=== PATIENT | male | born 1990 | race African-American/Black ===

== ENCOUNTER 2022-10-11 08:52 | Emergency (ER) | payer MEDICAID, OTHER ==
[~2022-10-11] VITALS: Ht 172.7 cm; Wt 67.3 kg
[~2022-10-11 08:52] MED LIST: PHEN100C4 PO
[2022-10-11 09:02] VITALS: BP 105/65
[2022-10-11] MEDS ORDERED: ERYT1OIN6 EACHEYE (10:06)
[2022-10-11] MEDS ORDERED: BENZ200C52 MT (10:06)
== END 2022-10-11 10:29 | disposition home or self-care (01) ==
LOC: ER 08:52
DX: R05.9 Cough, unspecified (principal); H10.9 Unspecified conjunctivitis; Z86.59 Personal history of other mental and behavioral disorders
CPT/HCPCS: 71045; 99283

== ENCOUNTER 2023-01-20 01:07 | Emergency (ER) | payer OTHER ==
[~2023-01-20] VITALS: Ht 175.3 cm; Wt 82.0 kg
[~2023-01-20 01:07] MED LIST changes: +BENZ200C52 MT; +ERYT1OIN6 EACHEYE
[2023-01-20 01:15] VITALS: O2SAT 96
[2023-01-20] MEDS ORDERED: LORAZEPAM 2MG/ML CPJ IV ONE (02:30)
[2023-01-20 02:47] LABS: BASOPHILS % 0.7 % (0.0-2.0); EOSINOPHILS % 1.4 % (0.0-5.0); HEMATOCRIT. 42.5 % (42.0-52.0); LYMPHOCYTES % 28.9 % (20.0-50.0); MEAN CORPUSCULAR HEMOGLOBIN 32.2 pg (28.0-32.0); MEAN CORPUSCULAR VOLUME 91.6 fL (80.0-94.0); MONOCYTES % 6.5 % (2.0-8.0); NEUTROPHILS % 62.5 % (40.0-76.0); RED BLOOD CELL COUNT 4.64 mill/uL (4.7-6.1); RED CELL DISTRIBUTION WIDTH 12.9 % (11.6-14.6)
[2023-01-20 02:53] LABS: CHLORIDE 107 mEq/L (98-107)
[2023-01-20 03:03] LABS: ETHANOL BLOOD < 10 mg/dL (-10)
[2023-01-20 03:30] VITALS: TEMP 98.8
[2023-01-20 04:30] LABS: MEAN PLATELET VOLUME 8.7 fl (7.4-10.4); PLATELET 163 x1000/uL (130-400)
[2023-01-20] MEDS ORDERED: PHENYTOIN SODIUM 500 MG in SODIUM CHLORIDE 0.9% 50 ML IV ONE (05:15)
[2023-01-20] MEDS ORDERED: PHENYTOIN SODIUM 500 MG in SODIUM CHLORIDE 0.9% 50 ML IV NR (05:15)
[2023-01-20] MEDS ORDERED: KEPP500 MT (05:57)
[2023-01-20] MEDS ORDERED: PHEN100C4 PO (05:57)
[2023-01-20 06:39] VITALS: BP 102/59; PULSE 76; RESP 16
== END 2023-01-20 06:39 | disposition home or self-care (01) ==
LOC: ER 01:29
DX: G40.909 Epilepsy, unspecified, not intractable, without status epilepticus (principal)
CPT/HCPCS: 80053; 80320; 80185; 85025; 36415; 96365; 96375; 99285; J2060; J1165; Z7610 ×4; G0480

== ENCOUNTER 2023-09-24 01:01 | Emergency (ER) | payer MEDICAID ==
[~2023-09-24] VITALS: Ht 177.8 cm; Wt 74.0 kg
[~2023-09-24 01:01] MED LIST changes: +KEPP500 MT
[2023-09-24 01:04] VITALS: O2SAT 100
[2023-09-24 01:20] VITALS: BP 116/69; PULSE 77; RESP 16; TEMP 98.4
[2023-09-24] MEDS: SODIUM CHLORIDE 0.9% 1,000 ML IV ONE (01:59)
[2023-09-24] MEDS: LEVETIRACETAM 1000MG PREMIX 100 ML IV ONE (01:59)
[2023-09-25] MEDS ORDERED: KEPP500 MT (07:11)
== END 2023-09-24 03:34 | disposition home or self-care (01) ==
LOC: ER 01:01
DX: R56.9 Unspecified convulsions (principal); F12.90 Cannabis use, unspecified, uncomplicated; Z91.148 Patient's other noncompliance with medication regimen for other reason; Z98.890 Other specified postprocedural states
CPT/HCPCS: 96365; 99284; J1953; J7030; Z7610 ×2

== ENCOUNTER 2023-09-24 10:06 | Emergency (ER) | payer MEDICAID ==
[~2023-09-24] VITALS: Ht 175.3 cm; Wt 77.0 kg
[2023-09-24 10:08] VITALS: O2SAT 95
[2023-09-24 10:37] LABS: BASOPHILS % 0.6 % (0.0-2.0); HEMATOCRIT. 46.6 % (42.0-52.0); HEMOGLOBIN. 15.8 g/dL (14.0-18.0); LYMPHOCYTES % 20.6 % (20.0-50.0); MEAN CORPUSCULAR HGB CONC 33.9 g/dL (31.0-37.0); MEAN CORPUSCULAR VOLUME 91.3 fL (80.0-94.0); MONOCYTES % 7.6 % (2.0-8.0); NEUTROPHILS % 70.2 % (40.0-76.0); PLATELET 196 x1000/uL (130-400); RED CELL DISTRIBUTION WIDTH 13.6 % (11.6-14.6); WHITE BLOOD COUNT 9.3 x1000/uL (4.5-11.0)
[2023-09-24 10:47] LABS: PROTHROMBIN TIME 11.4 sec (9.6-11.0)
[2023-09-24 10:57] LABS: ALANINE AMINOTRANSFERASE 26 IU/L (10-49); ALBUMIN 4.5 g/dL (3.2-4.8); ASPARTATE AMINOTRANSFERASE 27 IU/L (<34); BILIRUBIN TOTAL 0.4 mg/dL (0.1-1.0); CALCIUM 8.9 mg/dL (8.7-10.4); CARBON DIOXIDE 23 mEq/L (21-32); CHLORIDE 109 mEq/L (98-107); GLUCOSE 85 mg/dL (70-105); POTASSIUM 4.2 mEq/L (3.5-5.1); PROTEIN TOTAL 7.1 g/dL (6.0-8.3); SODIUM 141 mEq/L (136-145); TROPONIN I HIGH SENSITIVITY 4 ng/L (3.0-53); UREA NITROGEN BLOOD 9 mg/dL (9-23)
[2023-09-24 11:14] LABS: ETHANOL BLOOD < 10 mg/dL (<10)
[2023-09-24 12:25] VITALS: BP 118/70; PULSE 80; RESP 15; TEMP 98.7
[2023-09-24] MEDS: LEVETIRACETAM 500MG PREMIX 100 ML IV ONE ×2 (12:51→14:56)
[2023-09-25] MEDS ORDERED: KEPP500 MT (07:11)
== END 2023-09-24 17:22 | disposition left against medical advice (07) ==
LOC: ER 10:06 → EDBEDREQ 13:46 → ER 17:22 → CANBEDREQ 17:29
DX: R56.9 Unspecified convulsions (principal); F19.90 Other psychoactive substance use, unspecified, uncomplicated; Z98.890 Other specified postprocedural states
CPT/HCPCS: 80053; 80320; 83690; 85025; 85610; 84484; 36415; 71045; 70450; 93005; 96365; 96366; 99285; J1953; Z7610 ×4; G0480

== ENCOUNTER 2023-09-25 06:44 | Emergency (ER) | payer MEDICAID ==
[~2023-09-25] VITALS: Ht 182.9 cm; Wt 91.0 kg
[2023-09-25 06:45] VITALS: O2SAT 99
[2023-09-25 07:10] VITALS: BP 125/71; PULSE 82; RESP 13; TEMP 97.9
[2023-09-25] MEDS ORDERED: KEPP500 MT (07:11)
[2023-09-25] MEDS: LEVETIRACETAM 500MG TABLET PO ONE (07:18)
== END 2023-09-25 07:22 | disposition home or self-care (01) ==
LOC: ER 06:44
DX: R56.9 Unspecified convulsions (principal); Z91.148 Patient's other noncompliance with medication regimen for other reason; Z98.890 Other specified postprocedural states
CPT/HCPCS: 99283

== ENCOUNTER 2023-09-25 08:46 | Inpatient (IN) | payer MEDICAID ==
[~2023-09-25] VITALS: Ht 172.7 cm; Wt 77.1 kg
[2023-09-25 08:47] VITALS: O2SAT 98
[2023-09-25] MEDS: SODIUM CHLORIDE 0.45% 1,000 ML IV ONE (11:10)
[2023-09-25] MEDS: ACETAMINOPHEN 325MG TABLET PO NR (11:11)
[2023-09-25] MEDS: LEVETIRACETAM 1000MG PREMIX 100 ML IV ONE (13:21)
[2023-09-25 17:10] VITALS: BP 112/63; PULSE 62; RESP 14; RESP 16; TEMP 99.9
[2023-09-25 17:50] VITALS: BP 112/63; PULSE 72; RESP 18; TEMP 99.9
[2023-09-25] MEDS ORDERED: DIVALPROEX SODIUM 125MG SPRINKLE CAPSULE PO SCH (19:00)
[2023-09-25] MEDS ORDERED: LORAZEPAM 4MG/ML INJ IV PRN (19:00)
[2023-09-25] MEDS: LORAZEPAM 2MG/ML INJ ONE (19:44)
[2023-09-25] MEDS: LORAZEPAM 2MG/ML INJ IV PRN (19:50)
[2023-09-25 20:00] VITALS: BP 126/76; PULSE 68; RESP 18; TEMP 99.1
[2023-09-25] MEDS: DIVALPROEX SODIUM 500MG ER TABLET PO SCH (20:07)
[2023-09-25] MEDS: LEVETIRACETAM 500MG TABLET PO SCH (20:07)
[2023-09-26] VITALS: BP 115/69; PULSE 70; RESP 17; TEMP 98.7
[2023-09-26 04:00] VITALS: BP 130/76; PULSE 67; RESP 17; TEMP 98.5
[2023-09-26 07:25] LABS: CALCIUM 9.1 mg/dL (8.7-10.4); CARBON DIOXIDE 26 mEq/L (21-32); CHLORIDE 106 mEq/L (98-107); CREATININE 0.9 mg/dL (0.6-1.3); GLUCOSE 86 mg/dL (70-105); POTASSIUM 3.8 mEq/L (3.5-5.1); SODIUM 138 mEq/L (136-145); UREA NITROGEN BLOOD 7 mg/dL (9-23)
[2023-09-26 07:31] LABS: HEMATOCRIT 43.9 % (42.0-52.0); HEMOGLOBIN 15.3 g/dL (14.0-18.0); MEAN CORPUSCULAR HEMOGLOBIN 31.4 pg (28.0-32.0); MEAN CORPUSCULAR HGB CONC 34.9 g/dL (31.0-37.0); MEAN CORPUSCULAR VOLUME 90.1 fL (80.0-94.0); PLATELET 171 x1000/uL (130-400); RED BLOOD CELL COUNT 4.87 mill/uL (4.7-6.1); RED CELL DISTRIBUTION WIDTH 13.3 % (11.6-14.6); WHITE BLOOD COUNT 8.4 x1000/uL (4.5-11.0)
[2023-09-26 08:00] VITALS: BP 116/60; PULSE 71; RESP 17; TEMP 97.8
[2023-09-26] MEDS: HYDROCODONE/ACETAMINOPHEN 5/325MG TABLET PO PRN (08:37)
[2023-09-26 12:00] VITALS: BP 112/72; PULSE 63; RESP 17; TEMP 98.1
[2023-09-26 16:00] VITALS: BP 108/61; PULSE 60; RESP 20; TEMP 97.6
[2023-09-26] MEDS ORDERED: NALOXONE HCL 0.4MG/ML VIAL IV PRN (19:30)
[2023-09-26 20:00] VITALS: BP 114/73; PULSE 88; RESP 18; TEMP 97.5
[2023-09-27 04:00] VITALS: BP 149/69; PULSE 78; RESP 18; TEMP 97.5
[2023-09-27 08:00] VITALS: BP 128/73; PULSE 62; RESP 18; TEMP 98.1
== END 2023-09-27 13:30 | disposition home or self-care (01) | DRG 53 ==
LOC: ER 08:46 → EDBEDREQTM 15:23 → EDBEDREQ 15:23 → 7WST 17:15
PROVIDERS: ADMIT Internal Medicine; ATTEND Internal Medicine
DX: G40.901 Epilepsy, unspecified, not intractable, with status epilepticus (principal); E86.0 Dehydration; S00.83XA Contusion of other part of head, initial encounter; X58.XXXA Exposure to other specified factors, initial encounter
CPT/HCPCS: 36415; 80048; 82542; 85027; 99285; C1893; J1953; J2060

== ENCOUNTER 2023-12-05 07:42 | Emergency (ER) | payer MEDICAID ==
[~2023-12-05] VITALS: Ht 177.8 cm; Wt 80.0 kg
[2023-12-05 07:44] VITALS: O2SAT 98
[2023-12-05 08:06] VITALS: BP 115/75; PULSE 76; RESP 14; TEMP 98.2
[2023-12-05] MEDS ORDERED: ACET-2708 MT (08:23)
[2023-12-07] MEDS ORDERED: DIVA125T2 MT (18:04)
== END 2023-12-05 08:41 | disposition home or self-care (01) ==
LOC: ER 07:42
DX: R56.9 Unspecified convulsions (principal); Z79.899 Other long term (current) drug therapy
CPT/HCPCS: 99283; Z7610 ×2

== ENCOUNTER 2024-02-18 07:13 | Emergency (ER) | payer MEDICAID ==
[~2024-02-18] VITALS: Ht 165.1 cm; Wt 75.0 kg
[~2024-02-18 07:13] MED LIST changes: +ACET-2708 MT; +DIVA125T2 MT
[2024-02-18 07:15] VITALS: BP 109/63; PULSE 76; RESP 17; TEMP 97.8; O2SAT 98
[2024-02-19] MEDS ORDERED: KEPP500 PO (09:26)
[2024-02-19] MEDS ORDERED: PHEN100C4 PO (09:26)
== END 2024-02-18 08:22 | disposition home or self-care (01) ==
LOC: ER 07:13
DX: G40.901 Epilepsy, unspecified, not intractable, with status epilepticus (principal); Z79.899 Other long term (current) drug therapy
CPT/HCPCS: 99283

== ENCOUNTER 2024-02-19 07:15 | Emergency (ER) | payer MEDICAID ==
[~2024-02-19] VITALS: Ht 182.9 cm; Wt 82.0 kg
[2024-02-19 07:16] VITALS: O2SAT 99
[2024-02-19 08:17] LABS: CHLORIDE 108 mEq/L (98-107); POTASSIUM 4.4 mEq/L (3.5-5.1); SODIUM 141 mEq/L (136-145)
[2024-02-19 08:18] LABS: CARBON DIOXIDE 26 mEq/L (21-32)
[2024-02-19 08:19] LABS: CALCIUM 8.9 mg/dL (8.7-10.4)
[2024-02-19 08:23] LABS: CREATININE 0.9 mg/dL (0.6-1.3); GLUCOSE 95 mg/dL (70-105); UREA NITROGEN BLOOD 8 mg/dL (9-23)
[2024-02-19 08:28] LABS: ETHANOL BLOOD < 10 mg/dL (<10)
[2024-02-19 08:36] LABS: EOSINOPHILS % 2.4 % (0.0-5.0); HEMATOCRIT. 45.1 % (42.0-52.0); LYMPHOCYTES % 22.8 % (20.0-50.0); MEAN CORPUSCULAR HEMOGLOBIN 31.9 pg (28.0-32.0); MEAN CORPUSCULAR HGB CONC 33.3 g/dL (31.0-37.0); MEAN CORPUSCULAR VOLUME 95.8 fL (80.0-94.0); MEAN PLATELET VOLUME 9.2 fl (7.4-10.4); MONOCYTES % 5.7 % (2.0-8.0); NEUTROPHILS % 68.1 % (40.0-76.0); PLATELET 123 x1000/uL (130-400); RED BLOOD CELL COUNT 4.71 mill/uL (4.7-6.1); RED CELL DISTRIBUTION WIDTH 13.5 % (11.6-14.6); WHITE BLOOD COUNT 7.6 x1000/uL (4.5-11.0)
[2024-02-19] MEDS: ACETAMINOPHEN 325MG TABLET PO NR (08:53)
[2024-02-19] MEDS: LEVETIRACETAM 1000MG PREMIX 100 ML IV NR (08:53)
[2024-02-19] MEDS ORDERED: KEPP500 PO (09:26)
[2024-02-19] MEDS ORDERED: PHEN100C4 PO (09:26)
[2024-02-19 09:38] VITALS: BP 115/55; PULSE 88; RESP 15; TEMP 36.83628; O2SAT 97
== END 2024-02-19 09:40 | disposition home or self-care (01) ==
LOC: ER 07:15
DX: R56.9 Unspecified convulsions (principal); Z79.899 Other long term (current) drug therapy; Z91.148 Patient's other noncompliance with medication regimen for other reason
CPT/HCPCS: 80048; 80320; 80185; 85025; 36415; 96365; 99284; 82542; J1953; G0480

== ENCOUNTER 2024-03-04 11:18 | Emergency (ER) | payer MEDICAID ==
[~2024-03-04] VITALS: Ht 172.7 cm; Wt 77.0 kg
[~2024-03-04 11:18] MED LIST changes: +KEPP500 PO
[2024-03-04 11:27] VITALS: O2SAT 97
[2024-03-04] MEDS ORDERED: TOPUD MT (16:29)
[2024-03-04] MEDS ORDERED: IBUP-1523 MT (16:29)
[2024-03-04 16:50] VITALS: BP 144/83; PULSE 85; RESP 16; TEMP 36.78072; O2SAT 97
== END 2024-03-04 16:50 | disposition home or self-care (01) ==
LOC: ER 11:18
DX: S01.112A Laceration without foreign body of left eyelid and periocular area, initial encounter (principal); Z79.899 Other long term (current) drug therapy; X58.XXXA Exposure to other specified factors, initial encounter; Y93.89 Activity, other specified; Y92.89 Other specified places as the place of occurrence of the external cause; Y99.8 Other external cause status
CPT/HCPCS: 12013; 99282; Z7610

== ENCOUNTER 2024-03-05 08:43 | Emergency (ER) | payer MEDICAID ==
[~2024-03-05] VITALS: Ht 177.8 cm; Wt 82.0 kg
[~2024-03-05 08:43] MED LIST changes: +IBUP-1523 MT; +TOPUD MT
[2024-03-05 08:50] VITALS: BP 121/85; PULSE 90; RESP 16; TEMP 98.2; O2SAT 97
[2024-03-05] MEDS ORDERED: LEVETIRACETAM 1000MG PREMIX 100 ML IV NR (09:00)
== END 2024-03-05 11:02 | disposition left against medical advice (07) ==
LOC: ER 08:43 → EDBEDREQ 10:33 → ER 11:02
DX: G40.909 Epilepsy, unspecified, not intractable, without status epilepticus (principal); Z79.899 Other long term (current) drug therapy
CPT/HCPCS: 99283

== ENCOUNTER 2024-03-17 07:16 | Emergency (ER) | payer MEDICAID ==
[~2024-03-17] VITALS: Ht 172.7 cm; Wt 81.0 kg
[2024-03-17 07:20] VITALS: BP 126/71; PULSE 94; RESP 14; TEMP 97.9; O2SAT 100
[2024-03-17] MEDS ORDERED: LEVETIRACETAM 500MG/5ML CUP PO ONE (07:45)
== END 2024-03-17 07:59 | disposition left against medical advice (07) ==
LOC: ER 07:16
DX: G40.909 Epilepsy, unspecified, not intractable, without status epilepticus (principal); Z79.899 Other long term (current) drug therapy
CPT/HCPCS: 99283

== ENCOUNTER 2024-03-18 13:39 | Emergency (ER) | payer MEDICAID ==
[~2024-03-18] VITALS: Ht 177.8 cm; Wt 86.0 kg
[2024-03-18 13:47] VITALS: BP 113/73; PULSE 87; RESP 18; TEMP 98.8; O2SAT 98
== END 2024-03-18 14:17 | disposition left against medical advice (07) ==
LOC: ER 13:57
DX: R56.9 Unspecified convulsions (principal); Z79.899 Other long term (current) drug therapy
CPT/HCPCS: 99283; Z7610

== ENCOUNTER 2024-03-20 14:17 | Emergency (ER) | payer MEDICAID ==
[~2024-03-20] VITALS: Ht 172.7 cm; Wt 77.0 kg
[2024-03-20 14:25] VITALS: O2SAT 100
[2024-03-20 14:29] VITALS: BP 119/66; PULSE 61; RESP 16; TEMP 36.78072; O2SAT 100
== END 2024-03-20 16:15 ==
LOC: ER 14:17
DX: S01.112D Laceration without foreign body of left eyelid and periocular area, subsequent encounter (principal); Z48.02 Encounter for removal of sutures; Z79.899 Other long term (current) drug therapy; Z48.00 Encounter for change or removal of nonsurgical wound dressing; Z86.59 Personal history of other mental and behavioral disorders; X58.XXXD Exposure to other specified factors, subsequent encounter
CPT/HCPCS: 99281

== ENCOUNTER 2024-03-23 11:10 | Emergency (ER) | payer MEDICAID ==
[~2024-03-23] VITALS: Ht 172.7 cm; Wt 71.0 kg
[2024-03-23 11:54] VITALS: BP 115/88; PULSE 93; RESP 16; TEMP 98.4; O2SAT 99
[2024-03-23] MEDS ORDERED: KEPP500 MT (12:02)
== END 2024-03-23 12:20 | disposition home or self-care (01) ==
LOC: ER 12:19
DX: G40.909 Epilepsy, unspecified, not intractable, without status epilepticus (principal); Z79.899 Other long term (current) drug therapy
CPT/HCPCS: 99283

== ENCOUNTER 2024-05-05 17:27 | Emergency (ER) | payer MEDICAID ==
[~2024-05-05] VITALS: Ht 172.7 cm; Wt 65.0 kg
[2024-05-05 17:40] VITALS: O2SAT 99
[2024-05-05 17:46] VITALS: BP 132/80; PULSE 86; RESP 18; TEMP 98.8; O2SAT 99
[2024-05-05 19:55] LABS: HEMATOCRIT 44.4 % (42.0-52.0); HEMOGLOBIN 14.6 g/dL (14.0-18.0); MEAN CORPUSCULAR HEMOGLOBIN 31.5 pg (28.0-32.0); MEAN CORPUSCULAR HGB CONC 32.9 g/dL (31.0-37.0); MEAN CORPUSCULAR VOLUME 95.8 fL (80.0-94.0); PLATELET 183 x1000/uL (130-400); RED BLOOD CELL COUNT 4.63 mill/uL (4.7-6.1); RED CELL DISTRIBUTION WIDTH 13.3 % (11.6-14.6); WHITE BLOOD COUNT 8.3 x1000/uL (4.5-11.0)
[2024-05-05 20:01] LABS: CHLORIDE 106 mEq/L (98-107); POTASSIUM 3.8 mEq/L (3.5-5.1); SODIUM 141 mEq/L (136-145)
[2024-05-05 20:02] LABS: CARBON DIOXIDE 26 mEq/L (21-32)
[2024-05-05 20:03] LABS: CALCIUM 9.7 mg/dL (8.7-10.4)
[2024-05-05 20:07] LABS: GLUCOSE 87 mg/dL (70-105); UREA NITROGEN BLOOD 15 mg/dL (9-23)
== END 2024-05-05 23:20 | disposition home or self-care (01) ==
LOC: ER 17:27
DX: R00.2 Palpitations (principal); Z79.899 Other long term (current) drug therapy; Z86.59 Personal history of other mental and behavioral disorders
CPT/HCPCS: 36415; 80048; 85027; 93005; 99284

== ENCOUNTER 2024-06-28 09:26 | Emergency (ER) | payer MEDICAID ==
[~2024-06-28] VITALS: Ht 170.2 cm; Wt 70.0 kg
[2024-06-28 09:29] VITALS: O2SAT 98
[2024-06-28 11:06] LABS: BASOPHILS % 0.7 % (0.0-2.0); EOSINOPHILS % 1.4 % (0.0-5.0); HEMOGLOBIN. 14.4 g/dL (14.0-18.0); LYMPHOCYTES % 21.3 % (20.0-50.0); MEAN CORPUSCULAR HEMOGLOBIN 32.4 pg (28.0-32.0); MEAN CORPUSCULAR HGB CONC 33.6 g/dL (31.0-37.0); MEAN CORPUSCULAR VOLUME 96.2 fL (80.0-94.0); MEAN PLATELET VOLUME 9.2 fl (7.4-10.4); NEUTROPHILS % 70.6 % (40.0-76.0); PLATELET 157 x1000/uL (130-400); RED BLOOD CELL COUNT 4.47 mill/uL (4.7-6.1); RED CELL DISTRIBUTION WIDTH 14.1 % (11.6-14.6); WHITE BLOOD COUNT 5.5 x1000/uL (4.5-11.0)
[2024-06-28 11:07] LABS: CHLORIDE 108 mEq/L (98-107); POTASSIUM 4.6 mEq/L (3.5-5.1); SODIUM 143 mEq/L (136-145)
[2024-06-28 11:08] LABS: CARBON DIOXIDE 24 mEq/L (21-32)
[2024-06-28 11:09] LABS: CALCIUM 9.2 mg/dL (8.7-10.4)
[2024-06-28 11:13] LABS: GLUCOSE 95 mg/dL (70-105); UREA NITROGEN BLOOD 15 mg/dL (9-23)
[2024-06-28 11:20] LABS: ETHANOL BLOOD < 10 mg/dL (<10)
[2024-06-28] MEDS ORDERED: KEPP500 MT (11:47)
[2024-06-28] MEDS ORDERED: DIVA125T2 MT (11:47)
[2024-06-28] MEDS: VALPROIC ACID 250MG CAPSULE PO ONE (11:53)
[2024-06-28] MEDS: LEVETIRACETAM 500MG TABLET PO ONE (11:53)
[2024-06-28] MEDS ORDERED: LEVETIRACETAM 1,000MG in NACL 100ML PREMIX IV SCH (12:00)
[2024-06-28] MEDS: LORAZEPAM 2MG/ML INJ IV ONE (12:05)
[2024-06-28] MEDS: LEVETIRACETAM 1000MG PREMIX 100 ML IV SCH (12:15)
[2024-06-28] MEDS ORDERED: WATER IV ONE (12:15)
[2024-06-28] MEDS ORDERED: DEXT 5% IV ONE (12:15)
[2024-06-28] MEDS ORDERED: VALPROATE SODIUM IV ONE (12:15)
[2024-06-28] MEDS: SODIUM CHLORIDE 0.9% 1,000 ML IV ONE (12:35)
[2024-06-28 13:29] LABS: VALPROIC ACID 35.5 ug/mL (50-100)
[2024-06-28 13:35] LABS: PHENYTOIN < 2.0 ug/mL (10-20)
[2024-06-28] MEDS: DEXT 5% IV NR (14:48)
[2024-06-28] MEDS: VALPROATE SODIUM IV NR (14:48)
[2024-06-28] MEDS: WATER IV NR (14:48)
[2024-06-28 16:11] VITALS: BP 127/80; PULSE 66; RESP 16; TEMP 37.16964; O2SAT 98
== END 2024-06-28 16:31 | disposition home or self-care (01) ==
LOC: ER 09:34 → EDBEDREQ 12:06 → ER 16:31
DX: R56.9 Unspecified convulsions (principal); Z79.899 Other long term (current) drug therapy
CPT/HCPCS: 80048; 80320; 80185; 80165; 85025; 36415; 96367; 96365; 96375; 99291; J1953; J2060; J3490; J7060; J7030; G0480

== ENCOUNTER 2024-07-01 09:40 | Emergency (ER) | payer MEDICAID ==
[~2024-07-01] VITALS: Ht 172.7 cm; Wt 72.6 kg
[2024-07-01 09:52] VITALS: BP 152/81; PULSE 93; RESP 16; TEMP 98.2; O2SAT 100
[2024-07-01 12:46] LABS: *AMPHETAMINES SCREEN URINE NEGATIVE (NEGATIVE); *BARBITURATES SCREEN URINE NEGATIVE (NEGATIVE); *BENZODIAZEPINES SCREEN URINE NEGATIVE (NEGATIVE); *COCAINE SCREEN URINE NEGATIVE (NEGATIVE)
[2024-07-01 12:47] LABS: CANNABINOID URINE SCREEN PRESUMPTIVE POSITIVE (NEGATIVE); ECSTASY MDMA SCREEN URINE NEGATIVE (NEGATIVE); METHADONE URINE SCREEN NEGATIVE (NEGATIVE); OPIATES URINE SCREEN NEGATIVE (NEGATIVE); PHENCYCLIDINE URINE SCREEN NEGATIVE (NEGATIVE)
== END 2024-07-01 13:41 | disposition home or self-care (01) ==
LOC: ER 09:54
DX: R06.02 Shortness of breath (principal); F12.90 Cannabis use, unspecified, uncomplicated; Z79.899 Other long term (current) drug therapy
CPT/HCPCS: 80305; 99283

== ENCOUNTER 2025-01-13 14:14 | Emergency (ER) | payer MEDICAID ==
[~2025-01-13] VITALS: Ht 172.7 cm; Wt 73.0 kg
[~2025-01-13 14:14] MED LIST changes: -KEPP500 PO
[2025-01-13 14:33] VITALS: TEMP 36.9; O2SAT 97
[2025-01-13 15:03] VITALS: BP 121/72; PULSE 67; RESP 18; O2SAT 100
== END 2025-01-13 15:10 | disposition home or self-care (01) ==
LOC: ER 14:14
DX: S01.01XD Laceration without foreign body of scalp, subsequent encounter (principal); Z79.899 Other long term (current) drug therapy; X58.XXXD Exposure to other specified factors, subsequent encounter
CPT/HCPCS: 99282